=== PATIENT | female | born 1970 | race Hispanic/Latino ===

== ENCOUNTER 2021-01-20 11:48 | Emergency (ER) | payer SELFPAY ==
[2021-01-20 12:16] VITALS: BP 136/84; PULSE 98; RESP 16; TEMP 38.3; O2SAT 98
--- NOTE | 2021-01-20 12:35 | ED.NAVMDI ---
HPI - Nausea/Vomiting/Diarrhea General Chief complaint: Nausea/Vomiting/Diarrhea Stated complaint: vomiting/body chills/ Time Seen by Provider: 01/20/21 12:35 Source: patient, family and RN notes reviewed Mode of arrival: ambulatory Limitations: language barrier (granddaughter as windows phone developer) History of Present Illness HPI Narrative: 50 year old female who presents to express care with complaints of nausea, vomiting, and diarrhea since around 7 PM last night. Patient states she has upper epigastric discomfort, granddaughter states that grandmother has history of problems with her stomach if she eats a lot of spicy foods.Patient and grand daughter states that patient's grandson had similar symptoms about 2 weeks ago and he was diagnosed with gastroenteritis. Patient denies any blood or bilious vomiting or any blood noted in stool which has been watery. Patient denies any known fevers, states has had chills, denies any muscle or joint pain, denies any cough or any respiratory symptoms. Patient denies any burning or pain with urination, no frequency or urgency. MD elicited complaint: nausea, vomiting and diarrhea Onset (ago): day(s) (since last night 7 pm) Description of vomiting: food contents, watery and continuous Description of diarrhea: watery Associated nausea: Yes Associated abdominal pain: Yes Location of pain: epigastric Pain consistency: intermittent Severity: moderate Pain scale (0-10): 5 Quality: aching Exacerbating factors: eating Relieving factors: none Context: sick contacts (grandson with similar symptoms) Associated symptoms: fever/chills (Chills stated), loss of appetite, malaise, nausea/vomiting and other (diarrhea) Treatment prior to arrival: none Related Data Allergies Allergy/AdvReac Type Severity Reaction Status Date / Time No Known Allergies Allergy Verified 01/20/21 12:06 Review of Systems Review of Systems: Narrative: CONSTITUTIONAL: Denies known fever, positive for chills, no sweats. EYES: Denies visual changes, redness, or discharge. ENT: Denies rhinorrhea, congestion, sore throat, or otalgia. CARDIOVASCULAR: Denies chest pain, palpitations, or edema. RESPIRATORY: Denies cough or dyspnea. GASTROINTESTINAL: States upper abdominal pain, nausea, vomiting, and diarrhea. GENITOURINARY: Denies dysuria or hematuria. SKIN: Denies rash or itching. MUSCULOSKELETAL: Denies back pain, joint pain, or myalgia. NEUROLOGIC: Denies headache, numbness, or weakness. PSYCHIATRIC: Denies anxiety or depression. All systems reviewed & are unremarkable except as noted in HPI and below PMFSH Past Medical History Medical History (Updated 01/21/21 @ 00:00 by Alex Lake) Acid reflux Surgical History Surgical History (Updated 01/20/21 @ 12:56 by Magdalena Eagle NP) History of eye surgery as teenager Family History Family History (Updated 01/21/21 @ 14:33 by Magdalena Eagle NP) Other No significant family history Social History Social History (Updated 01/20/21 @ 13:44 by Magdalena Eagle NP) Smoking status: Never smoker Alcohol intake: never Substance use: never Living arrangements: with family Gender identity (if verbalized by the patient): Female Comments At time of signature, agree with nursing past medical, surgical, social and family history. There is no relevant family history pertinent to the presenting complaint Exam Narrative: Exam Narrative: GENERAL: Well-appearing, well-nourished, and in no acute distress. HEAD: Normocephalic, atraumatic. EYES: PERRLA and EOMI. ENT: Nares clear, no rhinorrhea or epistaxis. Mucous membranes moist. NECK: Supple.no lymphadenopathy CHEST: Clear to auscultation. No respiratory distress.SAO2 98% on room air HEART: Regular rate and rhythm. No murmur heard. Normal peripheral pulses. ABDOMEN: Soft, tender upper epigastric on palpation, nondistended, normal active bowel sounds.No radiation of pain, negative McBurney point tenderness and no Massey po
--- NOTE | 2021-01-20 12:47 | PC.NURSE ---
Pt reports her grandson had an illness like this 2 weeks ago. Pt feels dehydrated but cannot keep fluid down.
[2021-01-20] MEDS: ONDANSETRON HCL ODT 4 MG TABLET SUBLINGUAL (13:04)
== END 2021-01-20 13:59 | disposition home or self-care (01) ==
PROVIDERS: Emergency Provider Registered Nurse
DX: K52.9 Noninfective gastroenteritis and colitis, unspecified (principal); Z20.822 Contact with and (suspected) exposure to COVID-19; K21.9 Gastro-esophageal reflux disease without esophagitis
CPT/HCPCS: 81003; 87426; 87804; 99203; A9270; C9803; G0463